=== PATIENT | female | born 1960 | race Caucasian/White ===

== ENCOUNTER 2017-12-02 00:03 | Emergency (ER) | END 2017-12-02 07:39 | disposition short-term general hospital (02) ==

== ENCOUNTER 2018-10-27 04:59 | Emergency (ER) | payer OTHER ==
[~2018-10-27] VITALS: Ht 175.3 cm; Wt 68.2 kg
[2018-10-27 05:09] VITALS: Ht 175.3 cm; Wt 68.2 kg
[2018-10-27] MEDS ORDERED: PIPER-TAZO 3.375 GM IV (PMX) 100 ML IVPB STA (05:31)
[2018-10-27] MEDS ORDERED: SODIUM CHLORIDE 0.9% 1L BAG IV* STA (05:31)
[2018-10-27] MEDS ORDERED: ACETAMINOPHEN 325 MG TAB PO STA (05:31)
[2018-10-27] MEDS ORDERED: VANCOMYCIN 1 GM (PMX) 250 ML IVPB STA (05:31)
[2018-10-27] MEDS ORDERED: ONDANSETRON 4 MG INJ IV STA (06:07)
[2018-10-27] MEDS ORDERED: morphine 4 MG/ML VIAL IV STA (06:07)
[2018-10-27] MEDS ORDERED: SULF1TAB31 PO (07:57)
[2018-10-27] MEDS ORDERED: CEPH-443 PO (07:57)
[2018-10-27 08:20] VITALS: BP 94/52; PULSE 94; RESP 18
--- NOTE | 2018-10-27 13:26 | ERD ---
ER Documentation Chief Complaint Chief Complaint bilateral leg swelling/open sores getting worse. HPI Patient is a 58-year-old female with non-Hodgkin's lymphoma presents with wounds to the bilateral lower extremities. Her symptoms started on her heels and feet. It is painful. The pain and redness is now up her legs. She is a large hole to the right lateral leg which started 4 months ago but is worsening and draining. She has fevers. She has had no recent antibiotics. Upon review of old medical records the patient one previous visit to the ER in November 2017. Her doctor is a [facility]. ROS All systems reviewed and are negative except as per history of present illness. Medications Home Meds Active Scripts Cephalexin* (Keflex*) 500 Mg Capsule, 500 MG PO QID for 7 Days, CAP Prov:MAGGY MONTEZ MD 10/27/18 Sulfamethoxazole/Trimethoprim* (Bactrim Ds* Tablet) 1 Each Tablet, 1 TAB PO BID, #14 TAB Prov:MAGGY MONTEZ MD 10/27/18 Allergies Allergies: Coded Allergies: No Known Allergy (Unverified , 12/02/17) PMhx/Soc Hx Cardiac Disorders: Yes ( ) Hx Miscellaneous Medical Probl: Yes (hodgkins lymphoma, hypothyroid, bilat leg edema) Hx Alcohol Use: No Hx Substance Use: Yes (heroine user) Hx Tobacco Use: Yes (i cigar per day) Smoking Status: Current every day smoker FmHx Family History: No diabetes Physical Exam Vitals Vital Signs Date Temp Pulse Resp B/P (MAP) Pulse Ox O2 O2 Flow FiO2 Time Delivery Rate 10/27/18 98.5 94 18 94/52 (66) 95 Room Air 08:20 10/27/18 98.8 92 18 101/57 95 Room Air 06:30 (72) 10/27/18 Nasal 05:42 Cannula 10/27/18 101.0 100 20 116/73 97 Room Air 05:42 (87) 10/27/18 101.0 109 20 123/67 97 05:09 (85) Physical Exam Const: Moderate distress Head: Atraumatic Eyes: Normal Conjunctiva ENT: Normal External Ears, Nose and Mouth. Neck: Full range of motion. No meningismus. Resp: Clear to auscultation bilaterally Cardio: Regular rate and rhythm, no murmurs Abd: Soft, non tender, non distended. Normal bowel sounds Skin: Pale skin, ulcers to the base of the heels bilaterally, large hole approximately 3 x 4 cm with drainage to the right lateral calf Back: No midline or flank tenderness Ext: Edema of the bilateral lower extremities Neur: Awake and alert Psych: Normal Mood and Affect Result Diagram: 10/27/18 0549 10/27/18 0549 Results 24 hrs Laboratory Tests Test 10/27/18 05:49 10/27/18 05:56 10/27/18 07:57 White Blood Count 16.5 10^3/ul Red Blood Count 3.17 10^6/ul Hemoglobin 8.2 g/dl Hematocrit 27.0 % Mean Corpuscular Volume 85.2 fl Mean Corpuscular Hemoglobin 25.9 pg Mean Corpuscular Hemoglobin Concent 30.4 g/dl Red Cell Distribution Width 19.0 % Platelet Count 430 10^3/UL Mean Platelet Volume 8.9 fl Immature Granulocytes % 0.700 % Neutrophils % 78.1 % Lymphocytes % 15.1 % Monocytes % 5.2 % Eosinophils % 0.5 % Basophils % 0.4 % Nucleated Red Blood Cells % 0.0 /100WBC Immature Granulocytes # 0.110 10^3/ul Neutrophils # 12.9 10^3/ul Lymphocytes # 2.5 10^3/ul Monocytes # 0.9 10^3/ul Eosinophils # 0.1 10^3/ul Basophils # 0.1 10^3/ul Nucleated Red Blood Cells # 0.0 10^3/ul Prothrombin Time 13.7 Sec Prothrombin Time Ratio 1.1 INR International Normalized Ratio 1.04 Activated Partial Thromboplast Time 35.7 Sec Sodium Level 140 mmol/L Potassium Level 3.2 mmol/L Chloride Level 105 mmol/L Carbon Dioxide Level 27 mmol/L Anion Gap 8 Blood Urea Nitrogen 12 mg/dl Creatinine 0.77 mg/dl Est Glomerular Filtrat Rate mL/min > 60 mL/min Glucose Level 105 mg/dl Calcium Level 8.6 mg/dl Total Bilirubin 0.3 mg/dl Direct Bilirubin 0.00 mg/dl Indirect Bilirubin 0.3 mg/dl Aspartate Amino Transf (AST/SGOT) 15 IU/L Alanine Aminotransferase (ALT/SGPT) < 6 IU/L Alkaline Phosphatase 176 IU/L Troponin I < 0.012 ng/ml Total Protein 7.8 g/dl Albumin 3.0 g/dl Globulin 4.80 g/dl Albumin/Globulin Ratio 0.62 POC Venous Lactate 1.3 mmol/L Lactic Acid Level 0.7 mmol/L Current Medications Medications Dose Sig/Marina Start Time Status Last (Trade) Ordered Route PRN Stop Time Admin Dose Reason Admin Sodium 2,050 ml BOLUS OVER 2 10/27/18 DC 10/27/18 Chloride HOURS STAT 05:31 10/27/18 06:04 (NS) IV* 05:32 650 mg ONCE STAT 10/27/18 DC 10/27/18 Acetaminophen PO 05:31 10/27/18 06:04 (Tylenol 05:32 Tab) Vancomycin 250 ml @ ONCE STAT 10/27/18 DC 10/27/18 HCl 125 mls/hr IVPB 05:31 10/27/18 06:30 07:30 Piperacillin 100 ml @ ONCE STAT 10/27/18 DC 10/27/18 Sod/ 200 mls/hr IVPB 05:31 10/27/18 06:04 Tazobactam 06:00 Sod Morphine 4 mg ONCE STAT 10/27/18 DC 10/27/18 Sulfate IV 06:07 10/27/18 06:31 (morphine) 06:08 Ondansetron 4 mg ONCE STAT 10/27/18 DC 10/27/18 HCl (Zofran IV 06:07 10/27/18 06:30 Inj) 06:08 Procedures/MDM Sepsis Documentation: Patient's infectious symptoms have not stabilized and the patient is at risk of rapid decompensation. The patient will be admitted for careful hydration, antibiotic therapy, and infectious source control. SEVERE SEPSIS CRITERIA: Infectious source: Cellulitis End organ damage indicated by: No endorgan damage SEPSIS MANAGEMENT Time of recognition of sepsis: 5:49 AM. Time of recognition of severe sepsis: No severe sepsis at this time. Time of recognition of septic shock: No septic shock at this time. 3 HOUR BUNDLE Blood cultures x 2 before broad-spectrum antibiotics: Yes 30 ml/kg NS bolus completed Initial lactate 1.3 Repeat lactate 0.7 SEPTIC SHOCK ASSESSMENT: No lactic acid > 4.0 No persistent hypotension (SBP < 90 or 40 mmHg drop, MAP < 65) despite 30 mL/kg IV fluid bolus VOLUME REASSESSMENT FOR SEPTIC SHOCK: No septic shock at this time PERSISTENT HYPOTENSION TREATMENT: Comfort care no Central line not Required Vasopressor started not required I considered further perfusion assessment with CVP measurement, SCVO2, bedside ultrasound volume assessment, passive leg raise, trial of further fluid bolus. And proceeded with 30 ml/kg fluid bolus of NSS, broad spectrum antibiotics, and admission. However the patient does not want to be transferred to [facility] because she says "they do not treat drug users well there". I told her that we could admit her here but that she would be stuck with a huge bill for the admission as [facility] will not pay. I spoke with Dr. Bethea from [facility] who did say that they would not authorize payment if the patient was admitted to [facility]. The patient still does not want to be transferred to [facility] so she is going to leave AGAINST MEDICAL ADVICE. I will give her a prescription for Bactrim and Keflex. She should follow-up with her primary doctor within 24 to 48 hours for reevaluation and could return for worsening symptoms. CRITICAL CARE Critical care time 35 minutes Emergent fluid management while maintaining close respiratory support. Provision of immediate and broad-spectrum antibiotic therapy. Simultaneous asse ssment for possible sources in order to direct targeted therapy. Consideration for invasive and chemical support to prevent cardiopulmonary collapse. Critical care time is independent of procedures performed. Departure Diagnosis: Primary Impression: Sepsis Sepsis type: sepsis due to unspecified organism Qualified Codes: A41.9 - Sepsis, unspecified organism Additional Impression: Cellulitis Site of cellulitis: extremity Site of cellulitis of extremity: lower extremity Laterality: unspecified laterality Qualified Codes: L03.119 - Cellulitis of unspecified part of limb Condition: Fair Patient Instructions: Cellulitis Referrals: Your doctor at [facility] Additional Instructions: Call your primary care doctor TOMORROW for an appointment during the next 1-2 days.See the doctor sooner or return here if your condition worsens before your appointment time. MAGGY MONTEZ MD Oct 27, 2018 13:26
== END 2018-10-27 08:45 | disposition left against medical advice (07) ==
LOC: E/R 04:59
DX: A41.9 Sepsis, unspecified organism (principal); F17.210 Nicotine dependence, cigarettes, uncomplicated; E03.9 Hypothyroidism, unspecified; L03.115 Cellulitis of right lower limb; L03.116 Cellulitis of left lower limb; Z85.71 Personal history of Hodgkin lymphoma
CPT/HCPCS: 36415; 71045; 80053; 83605; 84484; 85025; 85610; 85730; 87040; 93005; 96374; 96375; J2270; J2405; J2543; J3370; J7030; Z7502; Z7610

== ENCOUNTER 2018-11-04 05:36 | Inpatient (IN) | payer OTHER ==
[~2018-11-04] VITALS: Ht 175.3 cm; Wt 78.4 kg
[~2018-11-04 05:36] MED LIST: CEPH-443 PO; SULF1TAB31 PO
[2018-11-04] MEDS ORDERED: VANCOMYCIN 1 GM (PMX) 250 ML IVPB STA (06:32)
[2018-11-04] MEDS ORDERED: PIPER-TAZO 3.375 GM IV (PMX) 100 ML IVPB STA (06:32)
[2018-11-04] MEDS ORDERED: ONDANSETRON 4 MG INJ IV PRN ×2 (07:00→09:30)
[2018-11-04] MEDS ORDERED: ACETAMINOPHEN 325 MG TAB PO PRN ×2 (07:00→09:30)
[2018-11-04] MEDS ORDERED: LEVO200T45 PO (08:08)
--- NOTE | 2018-11-04 08:20 | ERD ---
ER Documentation Chief Complaint Chief Complaint gabino leg swelling x 2 weeks HPI Patient is a 58-year-old female with history of heroin abuse who presents with bilateral lower extremity wounds. She said that she got rid of [facility] and wants to be admitted now. She denies fevers recently. I saw her on October 27 for fever and leg wounds which were draining and wanted to admit her to the hospital for cellulitis at that time. However [facility] but she was adamant that she did not want to go to [facility]. She left AGAINST MEDICAL ADVICE and I discharge her with Bactrim and Keflex. Unfortunately she did not fill these prescriptions. Upon review of old medical records this is the patient's third visit to the ER since 2018. She does not currently have a primary doctor but does have her new insurance. ROS All systems reviewed and are negative except as per history of present illness. Medications Home Meds Reported Medications Levothyroxine Sodium* (Levoxyl*) 200 Mcg Tablet, 200 MCG PO BEFORE BREAKFAST, #30 TAB 11/04/18 Discontinued Scripts Cephalexin* (Keflex*) 500 Mg Capsule, 500 MG PO QID for 7 Days, CAP Prov:MAGGY MONTEZ MD 10/27/18 Sulfamethoxazole/Trimethoprim* (Bactrim Ds* Tablet) 1 Each Tablet, 1 TAB PO BID, #14 TAB Prov:MAGGY MONTEZ MD 10/27/18 Allergies Allergies: Coded Allergies: No Known Allergy (Unverified , 11/04/18) PMhx/Soc Hx Cardiac Disorders: Yes ( ) Hx Miscellaneous Medical Probl: Yes (hodgkins lymphoma, hypothyroid, bilat leg edema) Hx Alcohol Use: No Hx Substance Use: Yes (heroine user) Hx Tobacco Use: Yes (i cigar per day) FmHx Family History: No diabetes Physical Exam Vitals Vital Signs Date Temp Pulse Resp B/P (MAP) Pulse Ox O2 O2 Flow FiO2 Time Delivery Rate 11/04/18 98.7 107 20 120/75 100 05:39 (90) Physical Exam Const: No acute distress Head: Atraumatic Eyes: Normal Conjunctiva ENT: Normal External Ears, Nose and Mouth. Neck: Full range of motion. No meningismus. Resp: Clear to auscultation bilaterally Cardio: Regular rate and rhythm, no murmurs Abd: Soft, non tender, non distended. Normal bowel sounds Skin: Necrotic ulcers to the bilateral lower extremities with surrounding erythema consistent with bilateral lower extremity cellulitis, large ulcer to the right lateral calf Back: No midline or flank tenderness Ext: No cyanosis, or edema Neur: Awake and alert Psych: Normal Mood and Affect Results 24 hrs Laboratory Tests Test 11/04/18 07:53 11/04/18 07:55 POC Venous Lactate 0.9 mmol/L White Blood Count Pending Red Blood Count Pending Hemoglobin Pending Hematocrit Pending Mean Corpuscular Volume Pending Mean Corpuscular Hemoglobin Pending Mean Corpuscular Hemoglobin Concent Pending Red Cell Distribution Width Pending Platelet Count Pending Mean Platelet Volume Pending Urine Color YELLOW Urine Clarity SLIGHTLY CLOUDY Urine pH 5.0 Urine Specific [place] 1.021 Urine Ketones NEGATIVE mg/dL Urine Nitrite NEGATIVE mg/dL Urine Bilirubin NEGATIVE mg/dL Urine Urobilinogen 2+ mg/dL Urine Leukocyte Esterase 2+ Cheng/ul Urine Microscopic RBC 5 /HPF Urine Microscopic WBC 88 /HPF Urine Squamous Epithelial Cells FEW /HPF Urine Bacteria FEW /HPF Urine Mucus MODERATE /HPF Urine Hemoglobin NEGATIVE mg/dL Urine Glucose NEGATIVE mg/dL Urine Total Protein NEGATIVE mg/dl Current Medications Medications Dose Sig/Marina Start Time Status Last (Trade) Ordered Route PRN Stop Time Admin Dose Reason Admin Vancomycin 250 ml @ ONCE STAT 11/04/18 HCl 125 mls/hr IVPB 06:32 11/04/18 08:31 Piperacillin 100 ml @ ONCE STAT 11/04/18 DC 11/04/18 Sod/ 200 mls/hr IVPB 06:32 07:47 Tazobactam 11/04/18 07:01 Sod Ondansetron 4 mg BRIDGE ORDER 11/04/18 HCl (Zofran PRN IV 07:00 Inj) NAUSEA/VOMITI 11/05/18 06:59 NG 650 mg ER BRIDGE 11/04/18 Acetaminophen PRN PO 07:00 (Tylenol .MILD PAIN 11/05/18 06:59 Tab) 1-3 OR TEMP Procedures/MDM Patient is a 58-year-old female who presents with bilateral lower extremity cellulitis. I doubt sepsis at this time. The patient was given vancomycin and Zosyn empirically and will need admission to the hospital. She will likely need wound care consultation while admitted. She has [facility] insurance now and I spoke with Dr. Fry for admission to a medical surgical bed. Departure Diagnosis: Primary Impression: Cystitis Additional Impression: Cellulitis Site of cellulitis: extremity Site of cellulitis of extremity: lower extremity Laterality: unspecified laterality Qualified Codes: L03.119 - Cellulitis of unspecified part of limb Condition: MAGGY Varghese MD Nov 04, 2018 08:20
[2018-11-04] MEDS ORDERED: VANCOMYCIN IV PER PHARMACY XX SCH (09:30)
[2018-11-04] MEDS ORDERED: VANCOMYCIN 500 MG (PMX) 100 ML IVPB SCH (11:00)
--- NOTE | 2018-11-04 14:09 | QN ---
Documentation Comment PT SEEN AND EXAMINED STAR MENDEZ MD Nov 04, 2018 14:09
[2018-11-04] MEDS ORDERED: DICYCLOMINE 10 MG CAP PO PRN (14:30)
[2018-11-04] MEDS ORDERED: KETOROLAC 30 MG INJ IV PRN (14:30)
[2018-11-04] MEDS: NICOTINE (21 MG/24 HR) PATCH TRANSDERM SCH (14:57)
[2018-11-04] MEDS: FAMOTIDINE 20 MG INJ IV SCH (14:57)
[2018-11-04] MEDS: SOD CHLORIDE 0.9% 1,000 ML IV SCH (14:58)
[2018-11-04 15:27] VITALS: Ht 175.3 cm; Wt 78.4 kg
[2018-11-04 15:35] VITALS: BP 118/71; PULSE 85; RESP 18
[2018-11-04] MEDS: DAKINS 0.0125%(1/40) 473 ML SOLUTION TP SCH (16:00)
[2018-11-04] MEDS: COLLAGENASE 5 GM (UD JAR) TOP SCH (16:00)
--- NOTE | 2018-11-04 16:02 | HP ---
DATE OF ADMISSION: 11/04/2018 REASON FOR ADMISSION: Bilateral lower extremity wounds. HISTORY OF PRESENT ILLNESS: This is a 58-year-old female with a past medical history of non-Hodgkin lymphoma, currently in remission for the last 5 years, followed at [facility] before, a history of heroin use, smoking, presented to the emergency department on 11/03/2018 secondary to worsening bi lateral lower extremity wounds for past few weeks. According to the patient, the patient has been black ving bilateral leg swelling for approximately a month. She lives in an . According to the patient , she was following in [facility] before and she lost her insurance. She was seen in the ER on 10/27/2018 for fever and bilateral lower extremity wounds that were draining, and wanted to admit to the hospital; however, she did not want to go to the [facility]. At that time she was at [facility] and left against medical advice with Bactrim and Keflex. She did not fill the prescriptions. However, the b ilateral lower extremity wounds were getting worse and came to the emergency department for further e valuation. The patient had also noticed on the right lower extremity, the wound had actually a hole and was draining. According to her, the stuff she drained out was really bad a few days ago. Denied any fevers and chills. On arrival to ED, vital signs show temperature 98.7, pulse 107, respirations 20, blood pressure 120/75. Labs showed white count of 7.2, hemoglobin 7.9, platelet count of 450, g lucose of 98, BUN of 12, creatinine 0.81, alkaline phosphatase 143. UA showed 88 wbc's. The patient was started on vancomycin and Zosyn and was admitted for further management. PAST MEDICAL HISTORY: 1. History of non-Hodgkin lymphoma. 2. Heroin use. 3. Hypothyroidism. ALLERGIES: NONE. PAST SURGICAL HISTORY: None. MEDICATIONS TAKING AT HOME: Levothyroxine. SOCIAL HISTORY: The patient is an everyday heroin user, uses one time of heroin every day for the years. Also uses a half a pack a day of smoking. Smoked cigarettes for many years. Denies an y alcohol use. Currently lives with a friend in . REVIEW OF SYSTEMS: The patient denied any abdominal pain, nausea, vomiting, diarrhea. Denies any ch est pain, any shortness of breath. Denies any headache, any blurry vision. Denies shortness of michael th. The patient has bilateral lower extremity edema with wounds. The patient also had wound on the left upper arm. PHYSICAL EXAMINATION: VITAL SIGNS: Currently, temperature 98.7, pulse 107, respirations 20, blood pressure 120/75. GENERAL: The patient is awake, alert, oriented, somewhat disheveled. HEENT: Pupils equal, round, reactive to light. NECK: Supple, no JVD. HEART: Regular rhythm. LUNGS: Clear to auscultate bilaterally. ABDOMEN: Soft, nontender, nondistended. Positive normoactive bowel sounds. EXTREMITIES: The patient has bilateral lower extremities with 2 to 3+ edema. The patient has rednes s, erythema present on the shins. The patient has necrotic ulcer present on the right lateral calf a round 4 to 5 cm, which is actively draining pus. The patient also has 2 bumps noted on the left hand . DIAGNOSTIC DATA: White count of 7.2, hemoglobin 7.9, platelet count 450, BUN of 12, creatinine 0.81. UA is positive. Chest x-ray is negative. ASSESSMENT AND PLAN: This is a 58-year-old female with: 1. Bilateral lower extremity wounds with cellulitis with large necrotic wound on the right romero, rig ht lateral calf, questionable likely secondary to osteomyelitis. 2. Two bumps present on the left hand, could be secondary to methicillin-resistant Staphylococcus au reus abscesses. 3. Heroin user. 4. History of smoking. 5. Urinary tract infection. 6. Anemia, likely secondary to anemia of chronic disease. 7. History of non-Hodgkin lymphoma. PLAN: At this period of time, the patient is admitted to med/surg. The patient will be on broad spe ctrum antibiotics, vancomycin and cefepime. We will call wound care. We will also call podiatry con sult. We will also send for wound cultures. The patient will also get x-ray of the leg and probably an MRI. Will also call for ID consultation. [facility] Dictated By: STAR LEON/ALBINA Conf#: [id number] DID#: [id number] CC: BRUCE LYLES MD;*EndCC*
[2018-11-04 20:10] VITALS: BP 122/73; PULSE 82; RESP 18
[2018-11-04] MEDS: CEFEPIME 1GM/50 ML (PMX) 50 ML IVPB SCH (21:09)
[2018-11-04] MEDS: LORAZEPAM 2 MG INJ IV PRN (21:16)
[2018-11-04] MEDS: VANCOMYCIN 1 GM 250 ML IVPB SCH (23:20)
[2018-11-05 02:12] VITALS: BP 109/82; PULSE 87; RESP 18
[2018-11-05] MEDS: LORAZEPAM 2 MG INJ IV PRN (02:56)
[2018-11-05] MEDS ORDERED: LORAZEPAM 2 MG INJ IV PRN (04:30)
[2018-11-05] MEDS ORDERED: morphine 2 MG INJ IV ONE (04:30)
[2018-11-05 08:12] VITALS: BP 105/67; PULSE 87; RESP 18
--- NOTE | 2018-11-05 08:24 | CONS ---
DATE OF ADMISSION: 11/04/2018 DATE OF CONSULTATION: 11/04/2018 TYPE OF CONSULTATION: Cardiology REFERRING PHYSICIAN: Agatha Mendez MD REASON FOR CONSULTATION: Bilateral lower extremity ulcerations. HISTORY OF PRESENT ILLNESS: This is a 58-year-old female who has had chronic ulceration to the right lower extremity, has bilateral lower extremity edema and patient apparently had issues with access t o care. She was treated at [place], but left against medical advice and did obtain antibiotic prescri ptions. Ulcerations were seen and admitted through the Emergency Room here, patient initiated on [facility] antibiotic with vancomycin and Zosyn. PAST MEDICAL HISTORY: History of non-Hodgkin's lymphoma, history of heroin use, hypothyroidism. ALLERGIES: None. PAST SURGICAL HISTORY: None. MEDICATIONS: Levothyroxine. SOCIAL HISTORY: Heroin use daily for the last 20 years, half pack per day for tobacco, patient rip marvin lives in an [place]. REVIEW OF SYSTEMS: Bilateral lower extremity swelling. OBJECTIVE: VITAL SIGNS: Temperature is 97.6, pulse is 85, respiratory rate 18, blood pressure is 118/71, pulse ox is 100 on room air. EXTREMITIES: Patient is alert, oriented, disheveled, bilateral lower extremity lymphedema, 2+ poplit eal pulse bilaterally, 2+ PT pulse, 1+ DP pulse on the right, left DP nonpalpable. The patient with ulceration of the right lateral calf measuring 3 x 4 x 2 cm deep. There is exposed muscle without ne crosis. There is moderate serous drainage. No signs of tunneling or undermining, localized erythema . The patient with 2+ pitting edema bilaterally, left anterior lower romero with the superficial ulcer ation with presence of biofilm measuring approximately 3 x 0.5 cm. No signs of pressure ulceration. LABORATORIES: WBC 7.2, hemoglobin 7.9, hematocrit 26.6, platelets 450. Sodium 141, potassium 3.7, c hloride 107, CO2 29, BUN 12, creatinine 0.81, albumin is 3.1. INR is 1.07. ASSESSMENT: Nares culture is pending. Chest x-ray: Improved lung volumes with decreased basilar at electasis. MRI pending. PLAN: Patient is currently on empiric antibiotics including vancomycin and cefepime. Can obtain wou nd cultures, initiate topical antiseptic precautions. We will follow up on the MRI when they become available. Recommend a venous ultrasound and compression with a sequential compression device. Rhiannon ent with a deep wound may benefit from negative pressure wound therapy while in-house. Therapy at [facility] may be difficult and may benefit from care home placement. Dictated By: TINO LEON/ALBINA Conf#: [id number] DID#: [id number] CC: AGATHA MENDEZ; BRUCE LYLES MD;*End*
[2018-11-05] MEDS ORDERED: COLLAGENASE 5 GM (UD JAR) TOP SCH (09:00)
[2018-11-05] MEDS: CEFEPIME 1GM/50 ML (PMX) 50 ML IVPB SCH (09:35)
[2018-11-05] MEDS: FAMOTIDINE 20 MG INJ IV SCH (09:35)
[2018-11-05] MEDS: NICOTINE (21 MG/24 HR) PATCH TRANSDERM SCH (09:36)
[2018-11-05] MEDS: COLLAGENASE 5 GM (UD JAR) TOP SCH (10:56)
[2018-11-05] MEDS: SOD CHLORIDE 0.9% 1,000 ML IV SCH (10:56)
[2018-11-05] MEDS: DAKINS 0.0125%(1/40) 473 ML SOLUTION TP SCH (10:56)
[2018-11-05] MEDS: VANCOMYCIN 1 GM 250 ML IVPB SCH (11:19)
--- NOTE | 2018-11-05 15:47 | CONS ---
DATE OF ADMISSION: 11/04/2018 DATE OF CONSULTATION: 11/05/2018 TYPE OF CONSULTATION: Infectious disease. REASON FOR CONSULTATION: Antibiotic management. HISTORY OF PRESENT ILLNESS: Celia Colon is a 58-year-old female who was admitted on 11/04/2018 with bilateral swelling of her feet. The patient has a history of heroin abuse, who presents with bilater al lower extremity wounds. She had [employer] insurance and wants to be admitted now here. She has feve r and leg wounds on 10/27/2018 which were draining and we wanted to admit her at that point for cellu litis. She had [facility] and need to be transferred, but she was adamant. She does not want to go to [place]. She left against medical advice. The emergency room doctor discharged her on Bact rim and Keflex. PAST MEDICAL HISTORY: Includes Hodgkin's lymphoma, hypothyroidism, bilateral leg edema. FAMILY HISTORY: Noncontributory. SOCIAL HISTORY: She smokes 1 cigar a day. She is a heroin user. ALLERGIES: NONE TO PENICILLIN, SULFA OR FOODS. MEDICATIONS: Per chart. REVIEW OF SYSTEMS: Noncontributory. PHYSICAL EXAMINATION: GENERAL: The patient is alert, responsive, in no acute distress. VITAL SIGNS: Stable. She is afebrile. SKIN: Without generalized rash. HEENT: Within normal limits. NECK: Supple. LYMPH NODES: None palpable. CHEST: Decreased breath sounds at the bases. HEART: Without murmur or gallop. ABDOMEN: Soft, nontender without organosplenomegaly or masses. EXTREMITIES: Without cyanosis, clubbing or edema. She has necrotic ulcers to bilateral lower extrem ities with surrounding erythema consistent with bilateral lower extremity cellulitis. She has a larg e ulcer to the right lateral calf. RECTAL AND GENITAL: Deferred. NEUROLOGIC: No focal neurological abnormality. HOSPITAL COURSE: Urinalysis shows 2+ leukocytes, 88 white cells per high-power field. She was place d on vancomycin and Zosyn. She has bilateral lower extremity cellulitis. She is on vancomycin and Z osyn. She was admitted for wound care consultation as well and will be followed up by Dr. Lyles and Dr. Vidales. She was also seen by Dr. Amezquita. She is currently on empiric antibiotics on vancomycin , now cefepime. White count 7.2. We obtained wound cultures and initiated topical antiseptic precau tions. An MRI was scheduled. We will recommend venous ultrasound and with sequential compression de vice. The patient with deep wound may benefit from negative pressure wound therapy while in-house. Therapy at home may be difficult and may benefit from fdc placement. We will continue th e patient on vancomycin and cefepime. I will dictate my findings to the hospitalist. Dictated By: QAMAR ORTIZ MD, JD/ALBINA Conf#: [id number] DID#: [id number] CC: BRUCE LYLES MD; TINO AMEZQUITA DPM;*EndCC*
--- NOTE | 2018-11-05 18:53 | DS ---
DATE OF ADMISSION: 11/04/2018 DATE OF DISCHARGE: 11/05/2018 HISTORY OF PRESENTING ILLNESS AND HOSPITAL COURSE: This is a 58-year-old female with past medical hi story of non-Hodgkin lymphoma, followed by [facility], history of heroin abuse, smoking, present ed to emergency department secondary to worsening bilateral lower extremity wounds for past few weeks . The patient had been having bilateral swelling for past 1 month. The patient was following at [facility] before patient came to the ER on 10/27/2018 for fever and bilateral lower extremity wounds that w ere draining. She did not want to go to [place] at that time. She left against medical advice. She was given a prescription of Bactrim and Keflex; however, did not take any prescriptions, came to be w orsening bilateral lower extremity edema, redness, had a hole in the right calf that was draining. O n admission, vital signs were stable. White count was 7.2, hemoglobin 7.9, platelet count 450, BUN o f 12, creatinine 0.81. The patient was started on broad spectrum IV antibiotics with vancomycin and cefepime. The patient was also seen by Dr. Lopez and venous ultrasound was done which is negative for DVT. The patient's cultures were sent. Blood cultures were negative. Gram stain came out to be gram-negative tarun. ID was also consulted. MRI was done that showed a very extensive bilateral soft tissue swelling, query cellulitis; large skin ulceration, lateral aspect of the right mid calf on th e right within the anteromedial soft tissue. There is suspicion of phlegmon abscess cm similar region seen anterior on the left . However, patient was explained everything but the patient w anted to leave AMA as she had a cat take care of. I explained to the patient that patient needs to b e in the hospital for IV antibiotics and surgical recommendation for possible drainage; however, the patient said that there is nobody to take care of her cat and left against medical advice. Dictated By: STAR LEON/ALBINA Conf#: [id number] DID#: [id number]
== END 2018-11-05 14:01 | disposition left against medical advice (07) | DRG 603 ==
LOC: E/R 05:36 → PP2 06:53
PROVIDERS: ADMIT Internal Medicine Nephrology; ATTEND Internal Medicine Nephrology
DX: L03.116 Cellulitis of left lower limb (principal); N39.0 Urinary tract infection, site not specified; L03.115 Cellulitis of right lower limb; E03.9 Hypothyroidism, unspecified; F19.10 Other psychoactive substance abuse, uncomplicated; D64.9 Anemia, unspecified; Z85.72 Personal history of non-Hodgkin lymphomas; Z87.891 Personal history of nicotine dependence
CPT/HCPCS: 71045; 73721; 80053; 81001; 82607; 82746; 83540; 83605; 84484; 85025; 85045; 85610; 85730; 87070; 87081; 87086; 93005; 93970; J0692; J1885; J2060; J2270; J2543; J3370; J7030

== ENCOUNTER 2018-11-09 03:43 | Inpatient (IN) | payer OTHER ==
[~2018-11-09] VITALS: Ht 172.7 cm; Wt 77.7 kg
[~2018-11-09 03:43] MED LIST changes: -CEPH-443 PO; +LEVO200T45 PO; -SULF1TAB31 PO
[2018-11-09] MEDS ORDERED: SODIUM CHLORIDE 0.9% 1L BAG IV* STA (06:13)
[2018-11-09] MEDS ORDERED: PIPER-TAZO 3.375 GM IV (PMX) 100 ML IVPB STA (06:13)
[2018-11-09] MEDS ORDERED: CLINDAMYCIN 900 MG/D5W (PMX) 50 ML IVPB STA (06:13)
[2018-11-09] MEDS ORDERED: VANCOMYCIN 1 GM (PMX) 250 ML IVPB STA (06:13)
--- NOTE | 2018-11-09 06:59 | ERD ---
ER Documentation Chief Complaint Chief Complaint swelling bilateral legs with multiple wounds HPI This is a 58-year-old female that has a past medical history of non-Hodgkin's lymphoma and heroin abuse. The patient indicates her last use of opium was 24 hours ago. The patient had recently been evaluated at [facility] on October 27, 2018 for fever and bilateral lower extremity draining ulcers treated for cellulitis. At that time she left AGAINST MEDICAL ADVICE and had been given a prescription of Bactrim and Keflex which she stated she did not fill. The patient had return for worsening of her symptoms to [facility] and was admitted with a significant work-up for treatment with broad-spectrum antibiotics and also seen by the funeral director/embalmer/owner Dr. Lopez. The patient had venous duplex ultrasounds performed at [facility] 4 days ago that indicated no evidence of a deep vein thrombosis. The patient did have an MRI that showed extensive bilateral soft tissue swelling, suspected cellulitis and a large skin ulceration on the right lower extremity that was suspicious of a phlegmon abscess. The patient had also left AGAINST MEDICAL ADVICE at that time with negative blood cultures and a Gram stain that was positive for gram- negative rods. She returns to the emergency department today stating that she has had very foul-smelling purulent drainage over the right lower extremity skin ulceration. She has had a tactile fever with shaking and chills. She states the pain is 10 out of 10 in intensity over the ulcer site. ROS All systems reviewed and are negative except as per history of present illness. Medications Home Meds Reported Medications Levothyroxine Sodium* (Levoxyl*) 200 Mcg Tablet, 200 MCG PO BEFORE BREAKFAST, #30 TAB 11/04/18 Discontinued Scripts Cephalexin* (Keflex*) 500 Mg Capsule, 500 MG PO QID for 7 Days, CAP Prov:MAGGY MONTEZ MD 10/27/18 Sulfamethoxazole/Trimethoprim* (Bactrim Ds* Tablet) 1 Each Tablet, 1 TAB PO BID, #14 TAB Prov:MAGGY MONTEZ MD 10/27/18 Allergies Allergies: Coded Allergies: No Known Allergy (Unverified , 11/04/18) PMhx/Soc History of Surgery: No Anesthesia Reaction: No Hx Neurological Disorder: No Hx Respiratory Disorders: No Hx Cardiac Disorders: No Hx Psychiatric Problems: No Hx Miscellaneous Medical Probl: Yes (Hodgkins Lymphoma 10 years ago, smoker 1/2 pack, heroin user for 20 years) Hx Alcohol Use: No Hx Substance Use: Yes (OPIUM) Hx Tobacco Use: Yes Smoking Status: Current every day smoker Physical Exam Vitals Vital Signs Date Temp Pulse Resp B/P (MAP) Pulse Ox O2 O2 Flow FiO2 Time Delivery Rate 11/09/18 98.0 91 22 112/79 100 Room Air 05:10 (90) 11/09/18 98.4 108 20 133/69 98 03:54 (90) Physical Exam Constitutional:Well-developed. Well-nourished. HEENT:Normocephalic. Atraumatic.Pupils were equal round reactive to light. Moist mucous membranes.No tonsillar exudates. Neck: No nuchal rigidity. No lymphadenopathy. No posterior cervical spine tenderness or step-offs. Respiratory: Not using accessory muscles of respiration.Lungs were clear to a uscultation bilaterally. No rhonchi. No rales. No wheezing. Cardiovascular: Regular rate regular rhythm.No murmurs. No rubs were appreciated.S1, S2 normal. Distal pulses are palpable 1+ bilaterally. GI: Abdomen was soft. Nontender. Non Distended. No pulsatile abdominal masses or bruits. No rebound. No guarding. Bowel sounds were present and normal. Muscle skeletal: Significant soft tissue swelling of the bilateral lower extremities. Skin: 4 cm x 5 cm stage III deep ulcer of the lateral right mid calf with pain not out of proportion to physical exam and no subcutaneous emphysema. Foul- smelling purulent drainage in the ulcer site. Surrounding erythremia warmth tenderness. NEURO: Patient was alert, awake, orientated x3.No facial droop. Gait observed and normal with no ataxia.Speech had regular rate and rhythm. No focal neurological deficits. Results 24 hrs Laboratory Tests Test 11/09/18 06:39 11/09/18 06:43 POC Venous Lactate 1.0 mmol/L White Blood Count Pending Red Blood Count Pending Hemoglobin Pending Hematocrit Pending Mean Corpuscular Volume Pending Mean Corpuscular Hemoglobin Pending Mean Corpuscular Hemoglobin Concent Pending Red Cell Distribution Width Pending Platelet Count Pending Mean Platelet Volume Pending Current Medications Medications Dose Sig/Marina Start Time Status Last (Trade) Ordered Route PRN Stop Time Admin Dose Reason Admin Sodium 2,330 ml BOLUS OVER 2 11/09/18 DC Chloride HOURS STAT 06:13 (NS) IV* 11/09/18 06:15 Vancomycin 250 ml @ ONCE STAT 11/09/18 HCl 125 mls/hr IVPB 06:13 11/09/18 08:12 Clindamycin 50 ml @ 50 ONCE STAT 11/09/18 HCl/ mls/hr IVPB 06:13 Dextrose 11/09/18 07:12 Piperacillin 100 ml @ ONCE STAT 11/09/18 DC Sod/ 200 mls/hr IVPB 06:13 Tazobactam 11/09/18 06:42 Sod Ondansetron 4 mg BRIDGE ORDER 11/09/18 HCl (Zofran PRN IV 07:00 Inj) NAUSEA/VOMITI 11/10/18 06:59 NG 650 mg ER BRIDGE 11/09/18 Acetaminophen PRN PO 07:00 (Tylenol .MILD PAIN 11/10/18 06:59 Tab) 1-3 OR TEMP Procedures/MDM The patient presented to the emergency department with a spreading erythematous superficial infection of the skin and subcutaneous tissues. My differential diagnosis included but was not limited to necrotizing fasciitis, lymphangitis, thrombophlebitis, deep vein thrombosis, allergic reaction, neoplasm, gout or abscess. Predisposing factors of the progressive spread of erythema, warmth, pain and tenderness was considered such as lymphedema, tinea pedis, open wounds, prior trauma or surgery, pre-existing skin lesion (furuncle), retained foreign body, injection drug use or vascular or immune compromise. The patient was placed on antibiotics to cover Staphylococcus aureus, including resistant strains such as community-acquired methicillin-resistant S. aureus to treat the suspected cellulitis and underlying abscess. Repeat blood cultures were obtained. The patient was not septic. Patient received IV fluids and started on broad-spectrum antibiotics including Zosyn vancomycin and clindamycin. 12 Lead EKG tracing ordered and reviewed by myself showed: Normal sinus rhythm of 88 bpm and no arrhythmia. NE interval normal. QRS duration normal. No ST segment elevation No ST segment depression. No changes consistent with acute ischemia. I spoke with Dr. Fry who kindly agreed to admit the patient to the medical surgical floor for observation. I do not feel is necessary at this time to obtain any further radiographic imaging as I did review the previous MRI taken 4 days prior to arrival. There is no evidence of deep vein thrombosis. Departure Diagnosis: Primary Impression: Cellulitis Site of cellulitis: extremity Site of cellulitis of extremity: lower extremity Laterality: right Qualified Codes: L03.115 - Cellulitis of right lower limb Condition: Serious CHERRI DAMIAN MD Nov 09, 2018 06:59
[2018-11-09] MEDS ORDERED: ONDANSETRON 4 MG INJ IV PRN (07:00)
[2018-11-09] MEDS ORDERED: ACETAMINOPHEN 325 MG TAB PO PRN (07:00)
--- NOTE | 2018-11-09 08:52 | HP ---
Date/Time of Note Date/Time of Note DATE: 11/09/18 TIME: 08:35 Assessment/Plan VTE Prophylaxis SCD contraindicated: bilateral LE trauma Pharmacological prophylaxis: LMWH Lines/Catheters IV Catheter Type (from Nrs): Saline Lock Assessment/Plan Hospital Course 1. Bilateral cellulitis with wounds/Elephantiasis. MRI LE showed: Very extensive bilateral subcutaneous soft tissue swelling and skin thickening throughout both calves, query cellulitis. Large skin ulceration at the lateral aspect of the right mid calf. On the right within the anterolateral subcutaneous soft tissues of the mid calf there is suspicion for phlegmon/abscess measuring 5.3 x 4.4 x 1.7 cm. A smaller similar region is seen anteriorly on the left measuring approximately 2.9 x 1.8 cm. If clinically warranted contrast-enhanced MRI or CT may provide additional detail. Abnormal medullary bone marrow signal within the proximal tibial metaphysis on the right and the proximal/distal tibial metaphysis on the left, more in keeping with bone infarcts rather than osteomyelitis. No definite evidence of acute osteomyelitis at this time. 2. Active narcotic dependency with iv heroine injections and oral benzodiazepines use 3. Current smoking 4. History of lymphoma and chemotherapy 5. Normocytic hypochromic anemia 6. Malnourishment 7. Hypothyroidism 8. Non compliance with regime, high elopement risk Assessment/Plan -DVT prophylaxis start Lovenox -GI prophylaxis start Protonix -Pain control -MedSurg -BNP tomorrow -Wound care -Nicotine patch -IV anti-biotic therapy -ID consult Dr. Mckeon -Podiatry consult with Dr. Payne Wound swab culture -Recent ultrasound of lower extremity shows no sonographic evidence of the deep vein thrombosis Result Diagram: 11/09/18 0643 11/09/18 0643 Results 24hrs Laboratory Tests Test 11/09/18 06:39 11/09/18 06:43 POC Venous Lactate 1.0 White Blood Count 6.1 Red Blood Count 3.07 L Hemoglobin 8.2 L Hematocrit 26.9 L Mean Corpuscular Volume 87.6 Mean Corpuscular Hemoglobin 26.7 L Mean Corpuscular Hemoglobin Concent 30.5 L Red Cell Distribution Width 18.6 H Platelet Count 380 Mean Platelet Volume 8.9 Immature Granulocytes % 0.200 Neutrophils % 49.5 Lymphocytes % 39.2 Monocytes % 8.4 Eosinophils % 2.0 Basophils % 0.7 Nucleated Red Blood Cells % 0.0 Immature Granulocytes # 0.010 Neutrophils # 3.0 Lymphocytes # 2.4 Monocytes # 0.5 Eosinophils # 0.1 Basophils # 0.0 Nucleated Red Blood Cells # 0.0 Prothrombin Time 13.3 Prothrombin Time Ratio 1.0 INR International Normalized Ratio 1.00 Activated Partial Thromboplast Time 36.8 H Sodium Level 141 Potassium Level 3.5 Chloride Level 106 Carbon Dioxide Level 29 Anion Gap 6 Blood Urea Nitrogen 12 Creatinine 0.82 Est Glomerular Filtrat Rate mL/min > 60 Glucose Level 86 Calcium Level 9.0 Total Bilirubin 0.2 Direct Bilirubin 0.00 Indirect Bilirubin 0.2 Aspartate Amino Transf (AST/SGOT) 16 Alanine Aminotransferase (ALT/SGPT) 10 L Alkaline Phosphatase 121 Troponin I < 0.012 Total Protein 7.3 Albumin 3.1 L Globulin 4.20 H Albumin/Globulin Ratio 0.73 Amylase Level 56 Lipase 33 HPI/ROS Admit Date/Time Admit Date/Time Hx of Present Illness This is a 58-year-old female that has a past medical history of non-Hodgkin's lymphoma, had chemotherapy, hypothyroidism and current IV heroin abuse. The patient indicates her last use of opium was 24 hours ago IV. The patient had recently been admitted to [facility] on November 04, 2018 and treated with antibiotics. Previously she was evaluated at [facility] on October 27, 2018 for fever and bilateral lower extremity draining ulcers treated for cellulitis. The patient did have an MRI that showed extensive bilateral soft tissue swelling, suspected cellulitis and a large skin ulceration on the right lower extremity that was suspicious of a phlegmon abscess. The patient had also left AGAINST MEDICAL ADVICE at that time with negative blood cultures and a Gram stain that was positive for gram-negative rods. She returns to the emergency department on 11/09/2018 stating that she has had very foul-smelling purulent drainage over the right lower extremity skin ulceration. She had subjective fever with shaking and chills. She states that her pain is 10 out of 10 over the ulcer site. PAST MEDICAL HISTORY: 1. History of non-Hodgkin lymphoma. 2. Heroin use. 3. Hypothyroidism. ROS Respiratory: no complaints Gastrointestinal: no complaints Musculoskeletal: swelling, other (pain 4.10 bilateral extremities) PMH/Family/Social Past Medical History unknown Medications Current Medications Ondansetron HCl (Zofran Inj) 4 mg BRIDGE ORDER PRN IV NAUSEA/VOMITING; Start 11/09/18 at 07:00; Stop 11/10/18 at 06:59 Acetaminophen (Tylenol Tab) 650 mg ER BRIDGE PRN PO .MILD PAIN 1-3 OR TEMP; Start 11/09/18 at 07:00; Stop 11/10/18 at 06:59 Coded Allergies: No Known Allergy (Unverified , 11/04/18) Past Surgical History Past Surgical Hx: no surgical history Family History Significant Family History: no pertinent family hx Social History Lives alone has brother and sister in [facility] Alcohol Use: none Smoking Status: Current every day smoker Drug Use: heroin, other (benzo) Exam/Review of Systems Vital Signs Vitals Vital Signs Date Temp Pulse Resp B/P (MAP) Pulse Ox O2 O2 Flow FiO2 Time Delivery Rate 11/09/18 88 19 127/79 100 Room Air 06:53 (95) 11/09/18 98.0 05:10 Exam Exam ON ARMS SIGNS OF iv narcotic ABUSE Constitutional: alert, oriented Psych: no complaints Head: normocephalic Eyes: nl conjunctiva ENMT: nl external ears & nose Neck: supple Respiratory: clear to auscultation Cardiovascular: regular rate and rhythm Gastrointestinal: soft Genitourinary - Female: CVA tenderness; No nl adnexae, No nl external genitalia, No CMT, No uterus, No other Musculoskeletal: swelling Extremities: edema (3+ WITH RIGHT CALF WOUND) Skin: puncture, other (scars, pale) ANNA MAXWELL Nov 09, 2018 08:45
[2018-11-09 09:48] VITALS: BP 107/64; PULSE 62; RESP 18
[2018-11-09] MEDS: PANTOPRAZOLE (EC) 40 MG TAB PO SCH (10:03)
[2018-11-09] MEDS: ENOXAPARIN 40 MG/0.4 ML SYG SC SCH (10:04)
[2018-11-09 12:23] VITALS: Ht 172.7 cm; Wt 77.7 kg
[2018-11-09] MEDS: NICOTINE (21 MG/24 HR) PATCH TRANSDERM SCH (15:56)
--- NOTE | 2018-11-09 17:45 | RADRPT ---
Echocardiogram Report Patient Name: ARIANA GONZALEZPatient ID: [id number] : 1960 (58y 7m)Study Date: 11/09/2018 9:50:31 AM Gender: FAccession #: [id number] Tech: Wendi Capone [facility] Location: [id number] Ref.Physician: ANNA MAXWELL Height(Cm): BSA: Weight(Kg): Quality: AdequateOrder Physician: ANNA MAXWELL Account #: Procedures: Echocardiographic Report: Transthoracic echocardiogram with complete 2D, M-Mode, and doppler examination. Indications: Bilateral edema lower extr. Measurements: 2D/M Mode Doppler Measurement Value Normal Range Measurement Value Normal Range LVIDd 2D 4.5 [ 3.8 - 5.2 ] cm AV Peak Kulwinder 1.7 [ 100.0 - 170.0 ] cm/se c LVIDs 2D 3.0 [ 2.2 - 3.5 ] cm AV Peak PG 12.0 [ 2.0 - 9.0 ] mmHg LVPWd 2D 0.9 [ 0.6 - 0.9 ] cm LVOT Peak Kulwinder 1.0 [ 70.0 - 110.0 ] cm/sec IVSd 2D 0.8 [ 0.6 - 0.9 ] cm LVOT Peak PG 4.0 [ 2.0 - 6.0 ] mmHg AoR Diam 2D 2.9 [ 2.3 - 3.1 ] cm MV E Peak Kulwinder 0.9 [ 60.0 - 130.0 ] cm/sec EDV 2D 92.9 [ 46.0 - 106.0 ] ml MV A Peak Kulwinder 1.0 [ 100.0 - 120.0 ] cm/se c ESV 2D 35.9 [ 14.0 - 42.0 ] ml MV E/A 0.9 [ 0.8 - 1.5 ] ratio EF 2D 61.4 [ 54.0 - 74.0 ] percent MV PHT 45.0 [ 20.0 - 100.0 ] msec LA Dimen 2D 3.6 [ 2.7 - 3.8 ] cm MV Decel Time 153 [ 104 - 258 ] msec MV Decel [place] 6 Lat E` Kulwinder 0.1 [ 10.0 - 15.0 ] cm/sec Lateral E/E` 9.1 [ 1.0 - 2.0 ] ratio Med E` Kulwinder 0.1 cm/sec MV E/A 0.9 [ 0.8 - 1.5 ] ratio MVA PHT 4.9 [ 2.0 - 4.0 ] cm2 TR Peak Kulwinder 2.5 [ 100.0 - 280.0 ] cm/se c TR Peak PG 24.0 mmHg RVSP 3.0 [ 10.0 - 36.0 ] mmHg RA Pressure 24.0 mmHg Findings: Left Ventricle: Normal left ventricular systolic function. Normal left ventricular cavity size. Normal left ventricular wall thickness. Ejection fraction is visually estimated at 55-60 %. Tissue Doppler/Mitral Doppler indices are consistent with impaired relaxation (Stage I diastolic dysfunction). Right Ventricle: Normal right ventricular size. Normal right ventricular systolic function. Left Atrium: The left atrium is normal in size. Right Atrium: The right atrium is normal in size. Atrial Septum: Normal atrial septum. Ventricular septum: Normal/intact ventricular septum. Mitral Valve: Normal appearance of the mitral valve. Trace mitral regurgitation. Aortic Valve: Normal appearance of the aortic valve. No aortic regurgitation. Tricuspid Valve: Normal appearance of the tricuspid valve. The estimated Peak RVSP is 27 mmHg. There is trace to mild tricuspid regurgitation. Pericardium: Normal pericardium with no significant pericardial effusion. Aorta: Normal aortic root. IVC: Normal size and normal respiratory collapse consistent with normal right atrial pressure. Conclusions: Normal left ventricular systolic function. Normal left ventricular cavity size. Normal left ventricular wall thickness. Ejection fraction is visually estimated at 55-60 %. Tissue Doppler/Mitral Doppler indices are consistent with impaired relaxation (Stage I diastolic dysfunction). ). Normal right ventricular size. Normal right ventricular systolic function. Trace mitral regurgitation. No aortic regurgitation. The estimated Peak RVSP is 27 mmHg. There is trace to mild tricuspid regurgitation. Normal pericardium with no significant pericardial effusion. Electronically Signed By: Satish Jimenez 2018-11-09 17:44:49 PDT
[2018-11-09 20:27] VITALS: BP 108/63; PULSE 85; RESP 18
[2018-11-10 02:28] VITALS: BP 110/66; PULSE 75; RESP 20
[2018-11-10] MEDS: PANTOPRAZOLE (EC) 40 MG TAB PO SCH (05:58)
[2018-11-10 07:38] VITALS: BP 117/56; PULSE 89; RESP 15
[2018-11-10] MEDS: NICOTINE (21 MG/24 HR) PATCH TRANSDERM SCH (08:20)
[2018-11-10] MEDS: ENOXAPARIN 40 MG/0.4 ML SYG SC SCH (08:21)
--- NOTE | 2018-11-10 09:47 | CONS ---
DATE OF ADMISSION: 11/09/2018 DATE OF CONSULTATION: 11/10/2018 REASON FOR CONSULTATION: Right lower extremity cellulitis, infected ulceration. HISTORY OF PRESENT ILLNESS: This is a 58-year-old female with chronic ulceration who was recently ho spitalized and left against medical advice. The patient with persistent drainage has an abscess form ation. She has on 11/05/2018, wound cultures with polymicrobial growth including Staph aureus, E. co li and strep . PAST MEDICAL HISTORY: Lymphedema, narcotic dependency, smoking, history of lymphoma, chemotherapy, h ypochromic anemia, malnourishment, noncompliance. ALLERGIES: NONE. MEDICATIONS: 1. Nicotine patch daily. 2. Pantoprazole 40 mg p.o. daily. 3. Lovenox. PHYSICAL EXAMINATION: VITAL SIGNS: Temperature 98.4, pulse is 89, respiratory rate 15, blood pressure is 117/56, pulse ox 92 on room air, alert, oriented, pleasant mood. EXTREMITIES: Right lower extremity calf ulceration measuring 4 x 3 cm with heavy amount of purulent drainage, ulceration tunnels. The 6 o'clock position has pain with palpation. Also ulceration plant ar aspect of the right foot 1 x 1 cm, skin and subcutaneous atrophy to the heel. She has lymphedema of the foot and lower extremity, pedal pulses are palpable. LABORATORIES: WBC 5.5, hemoglobin 7.5, hematocrit 25.7, platelets 344. Blood cultures no growth. ASSESSMENT: 1. Right lower extremity abscess. 2. Right lower extremity cellulitis. 3. Lymphedema. 4. Right foot ulceration. 5. Narcotic dependence, history of daily heroin use. 6. Noncompliance. PLAN: The patient left AMA prior hospitalizations; high elopement risk. This is our plan; continue b.i.d. Dakin's irrigation and open packing. Given presence of abscess would benefit from incision an d drainage. This was discussed with patient and she is amenable. We will schedule a mutually agreea ble time. Awaiting culture results. Dictated By: TINO LEON/ALBINA Conf#: [id number] DID#: [id number] CC: BRUCE LYLES MD;*EndCC*
[2018-11-10] MEDS: MUPIROCIN 2% 22 GM OINT TOP SCH ×2 (10:28→21:05)
[2018-11-10] MEDS ORDERED: VANCOMYCIN IV PER PHARMACY XX SCH (11:00)
[2018-11-10] MEDS ORDERED: CEFEPIME 1GM/50 ML (PMX) 50 ML IVPB SCH (11:00)
--- NOTE | 2018-11-10 11:04 | PN ---
Date/Time of Note Date/Time of Note DATE: 11/10/18 TIME: 11:00 Assessment/Plan VTE Prophylaxis Risk score (from Nsg)>0 risk: 2 SCD applied (from Ns): No SCD contraindicated: bilateral LE trauma Pharmacological prophylaxis: LMWH Lines/Catheters IV Catheter Type (from Nrs): Peripheral IV Assessment/Plan Hospital Course 1. Bilateral cellulitis with wounds/Elephantiasis. MRI LE showed: Very extensive bilateral subcutaneous soft tissue swelling and skin thickening throughout both calves, query cellulitis. Large skin ulceration at the lateral aspect of the right mid calf. On the right within the anterolateral subcutaneous soft tissues of the mid calf there is suspicion for phlegmon/abscess measuring 5.3 x 4.4 x 1.7 cm. A smaller similar region is seen anteriorly on the left measuring approximately 2.9 x 1.8 cm. If clinically warranted contrast-enhanced MRI or CT may provide additional detail. Abnormal medullary bone marrow signal within the proximal tibial metaphysis on the right and the proximal/distal tibial metaphysis on the left, more in keeping with bone infarcts rather than osteomyelitis. No definite evidence of acute osteomyelitis at this time. 2. Active narcotic dependency with iv heroine injections and oral benzodiazepines use 3. Current smoking 4. History of lymphoma and chemotherapy 5. Normocytic hypochromic anemia 6. Malnourishment 7. Hypothyroidism, uncontrolled 8. Non compliance with regime, high elopement risk 9. Anxiety, depression. Assessment/Plan -DVT prophylaxis Lovenox -iron panel tomorrow -Start on Wellbutrin -start ferrlicit -GI prophylaxis Protonix -Pain control -MedSurg -increase thyroid supplement, pt is unaware of dose, per previous record it is 200 mcg. -BNP tomorrow -c/w Wound care -Nicotine patch -IV anti-biotic therapy start Cefepime and Vanco -ID consult Dr. Mckeon, aware -Podiatry consult with Dr. Payne -Wound swab culture pend., Blood culture pending. -Recent ultrasound of lower extremity shows no sonographic evidence of the deep vein thrombosis Result Diagram: 11/10/18 0545 11/10/18 0545 Results 24hrs Laboratory Tests Test 11/09/18 11:41 11/10/18 05:45 Lactic Acid Level 1.6 White Blood Count 5.3 Red Blood Count 2.91 L Hemoglobin 7.5 L Hematocrit 25.7 L Mean Corpuscular Volume 88.3 Mean Corpuscular Hemoglobin 25.8 L Mean Corpuscular Hemoglobin Concent 29.2 L Red Cell Distribution Width 18.6 H Platelet Count 344 Mean Platelet Volume 9.2 Immature Granulocytes % 0.200 Neutrophils % 51.0 Lymphocytes % 38.5 Monocytes % 7.6 Eosinophils % 2.3 Basophils % 0.4 Nucleated Red Blood Cells % 0.0 Immature Granulocytes # 0.010 Neutrophils # 2.7 Lymphocytes # 2.0 Monocytes # 0.4 Eosinophils # 0.1 Basophils # 0.0 Nucleated Red Blood Cells # 0.0 Sodium Level 142 Potassium Level 3.6 Chloride Level 109 Carbon Dioxide Level 27 Anion Gap 6 Blood Urea Nitrogen 11 Creatinine 0.62 Est Glomerular Filtrat Rate mL/min > 60 Glucose Level 94 Calcium Level 8.0 L B-Type Natriuretic Peptide 209 H Thyroid Stimulating Hormone (TSH) 16.400 H Hepatitis B Surface Antigen NEGATIVE Hepatitis B Core Total Antibody NEGATIVE Hepatitis C Antibody REACTIVE H HIV (1&2) Antibody NEGATIVE Subjective 24 Hr Interval Summary Musculoskeletal: bone/joint pain, restricted range of motion, swelling Psychological: depression Exam/Review of Systems Exam Vitals Vital Signs Date Temp Pulse Resp B/P (MAP) Pulse Ox O2 O2 Flow FiO2 Time Delivery Rate 11/10/18 98.4 89 15 117/56 92 Room Air 07:38 (76) Intake and Output 11/09/18 11/09/18 11/10/18 1515:00 23:00 07:00 IntakeIntake Total 300 ml 200 ml BalanceBalance 300 ml 200 ml Constitutional: alert, oriented Psych: depression Neck: supple Respiratory: clear to auscultation Gastrointestinal: soft Musculoskeletal: muscle weakness, swelling (bilateral legs) Extremities: edema Additional Comments crying Results Results 24hrs Laboratory Tests Test 11/09/18 11:41 11/10/18 05:45 Lactic Acid Level 1.6 White Blood Count 5.3 Red Blood Count 2.91 L Hemoglobin 7.5 L Hematocrit 25.7 L Mean Corpuscular Volume 88.3 Mean Corpuscular Hemoglobin 25.8 L Mean Corpuscular Hemoglobin Concent 29.2 L Red Cell Distribution Width 18.6 H Platelet Count 344 Mean Platelet Volume 9.2 Immature Granulocytes % 0.200 Neutrophils % 51.0 Lymphocytes % 38.5 Monocytes % 7.6 Eosinophils % 2.3 Basophils % 0.4 Nucleated Red Blood Cells % 0.0 Immature Granulocytes # 0.010 Neutrophils # 2.7 Lymphocytes # 2.0 Monocytes # 0.4 Eosinophils # 0.1 Basophils # 0.0 Nucleated Red Blood Cells # 0.0 Sodium Level 142 Potassium Level 3.6 Chloride Level 109 Carbon Dioxide Level 27 Anion Gap 6 Blood Urea Nitrogen 11 Creatinine 0.62 Est Glomerular Filtrat Rate mL/min > 60 Glucose Level 94 Calcium Level 8.0 L B-Type Natriuretic Peptide 209 H Thyroid Stimulating Hormone (TSH) 16.400 H Hepatitis B Surface Antigen NEGATIVE Hepatitis B Core Total Antibody NEGATIVE Hepatitis C Antibody REACTIVE H HIV (1&2) Antibody NEGATIVE Medications Medication Current Medications Pantoprazole (Protonix Tab) 40 mg DAILY@0600 PO Last administered on 11/10/18at 05:58; Admin Dose 40 MG; Start 11/09/18 at 09:00 Enoxaparin Sodium (Lovenox) 40 mg DAILY SC Last administered on 11/10/18 08:21 ; Admin Dose 40 MG; Start 11/09/18 at 09:00 Nicotine (Nicoderm 21 Mg/ 24hr) 1 patch DAILY TRANSDERM Last administered on 11/10/18at 08:20; Admin Dose 1 PATCH; Start 11/09/18 at 15:00 Mupirocin (Bactroban) 1 applic BID TOP Last administered on 11/10/18at 10:28; Admin Dose 1 APPLIC; Start 11/10/18 at 10:00 Sodium Hypochlorite (Dakins Diluted (1/40)) 1 applic BID TP ; Start 11/10/18 at 11:20 ANNA MAXWELL Nov 10, 2018 11:04
[2018-11-10] MEDS ORDERED: SENNA TAB PO PRN (11:30)
[2018-11-10] MEDS: LORAZEPAM 0.5 MG TAB PO SCH ×2 (11:45→21:04)
[2018-11-10] MEDS: DAKINS 0.0125%(1/40) 473 ML SOLUTION TP SCH ×2 (11:46→21:06)
[2018-11-10] MEDS ORDERED: SOD FERRIC GLUC COMPLX 125 MG in SOD CHLORIDE 0.9% 100 ML IVPB SCH (13:00)
[2018-11-10] MEDS ORDERED: VANCOMYCIN 1 GM 250 ML IVPB SCH (13:00)
--- NOTE | 2018-11-10 13:07 | CONS ---
Assessment/Plan Assessment/Plan Hospital Course (Demo Recall) Patient is awake looks comfortable denies pain no fevers overnight. No nausea vomiting diarrhea. WBC 5.3, no shift no bands BUN 11 creatinine 0.62 Microbiology right foot wound culture growing staph aureus and gram-negative rods blood cultures remain negative, wound cultures on previous admission on November 05 grew E. coli, oxacillin sensitive staph aureus strep pyogenous Corynebacterium species posterior multocida Antimicrobials: Patient is on IV Vanco and cefepime Physical examination well-developed middle-aged white woman who is alert in no distress head atraumatic normocephalic neck is supple chest rise symmetrical breath sounds clear heart S1-S2 abdomen soft bowel sounds present extremities with bilateral lower extremities edema right foot dressing intact Assessment: 1. Bilateral lower extremities chronic ulceration with cellulitis, cultures growing multiple bacteria 2. Medical noncompliance 3. Hypothyroidism 4. History of non-Hodgkin's lymphoma 5. History of heroin abuse Plan: Patient is stable, change abx to Clindamycin, Doxycycline and Cipro, follow podiatry recommendations Consultation Date/Type/Reason Admit Date/Time Nov 09, 2018 at 06:34 Initial Consult Date Type of Consult id Date/Time of Note DATE: 11/10/18 TIME: 13:07 Exam/Review of Systems Exam Vitals Vital Signs Date Temp Pulse Resp B/P (MAP) Pulse Ox O2 O2 Flow FiO2 Time Delivery Rate 11/10/18 98.4 89 15 117/56 92 Room Air 07:38 (76) Intake and Output 11/09/18 11/09/18 11/10/18 1414:59 22:59 06:59 IntakeIntake Total 300 ml 200 ml BalanceBalance 300 ml 200 ml Results Result Diagram: 11/10/18 0545 11/10/18 0545 Results 24hrs Laboratory Tests Test 11/10/18 05:45 White Blood Count 5.3 Red Blood Count 2.91 L Hemoglobin 7.5 L Hematocrit 25.7 L Mean Corpuscular Volume 88.3 Mean Corpuscular Hemoglobin 25.8 L Mean Corpuscular Hemoglobin Concent 29.2 L Red Cell Distribution Width 18.6 H Platelet Count 344 Mean Platelet Volume 9.2 Immature Granulocytes % 0.200 Neutrophils % 51.0 Lymphocytes % 38.5 Monocytes % 7.6 Eosinophils % 2.3 Basophils % 0.4 Nucleated Red Blood Cells % 0.0 Immature Granulocytes # 0.010 Neutrophils # 2.7 Lymphocytes # 2.0 Monocytes # 0.4 Eosinophils # 0.1 Basophils # 0.0 Nucleated Red Blood Cells # 0.0 Sodium Level 142 Potassium Level 3.6 Chloride Level 109 Carbon Dioxide Level 27 Anion Gap 6 Blood Urea Nitrogen 11 Creatinine 0.62 Est Glomerular Filtrat Rate mL/min > 60 Glucose Level 94 Calcium Level 8.0 L B-Type Natriuretic Peptide 209 H Thyroid Stimulating Hormone (TSH) 16.400 H Hepatitis B Surface Antigen NEGATIVE Hepatitis B Core Total Antibody NEGATIVE Hepatitis C Antibody REACTIVE H HIV (1&2) Antibody NEGATIVE Medications Medication Current Medications Pantoprazole (Protonix Tab) 40 mg DAILY@0600 PO Last administered on 11/10/18at 05:58; Admin Dose 40 MG; Start 11/09/18 at 09:00 Enoxaparin Sodium (Lovenox) 40 mg DAILY SC Last administered on 11/10/18at 08:21; Admin Dose 40 MG; Start 11/09/18 at 09:00 Nicotine (Nicoderm 21 Mg/ 24hr) 1 patch DAILY TRANSDERM Last administered on 11/10/18at 08:20; Admin Dose 1 PATCH; Start 11/09/18 at 15:00 Mupirocin (Bactroban) 1 applic BID TOP Last administered on 11/10/18at 10:28; Admin Dose 1 APPLIC; Start 11/10/18 at 10:00 Sodium Hypochlorite (Dakins Diluted (1/40)) 1 applic BID TP Last administered on 11/10/18at 11:46; Admin Dose 1 APPLIC; Start 11/10/18 at 11:20 Cefepime HCl 50 ml @ 100 mls/hr Q12 IVPB ; Start 11/10/18 at 11:00 Vancomycin HCl (Vanco Iv Per Pharmacy) VANCOMYCIN PER PHARMACY PER PROTOCOL XX ; Start 11/10/18 at 11:00 Bupropion HCl (Wellbutrin Xl) 150 mg DAILY PO ; Start 11/10/18 at 11:00 Lorazepam (Ativan) 0.5 mg BID PO Last administered on 11/10/18at 11:45; Admin Dose 0.5 MG; Start 11/10/18 at 11:00 Ferric Sodium Gluconate Complex 125 mg/Sodium Chloride 110 ml @ 110 mls/hr DAILY@1300 IVPB ; Start 11/10/18 at 13:00; Stop 11/14/18 at 13:59 Levothyroxine Sodium (Synthroid) 200 mcg DAILY@06 PO ; Start 11/11/18 at 06:00 Senna (Senokot) 1 tab BID PRN PO constipation Last administered on 11/10/18at 11:45; Admin Dose 1 TAB; Start 11/10/18 at 11:30 Vancomycin HCl 250 ml @ 125 mls/hr Q12H IVPB ; Start 11/10/18 at 13:00 ANGELITO BECK NP Nov 10, 2018 13:07
[2018-11-10] MEDS: BUPROPION (XL) 150 MG TAB PO SCH (13:40)
[2018-11-10 14:25] VITALS: BP 131/69; PULSE 85; RESP 16
[2018-11-10] MEDS: CLINDAMYCIN 900 MG/D5W (PMX) 50 ML IVPB SCH ×2 (14:56→21:04)
[2018-11-10] MEDS: CIPROFLOXACIN 500 MG TAB PO SCH (17:33)
[2018-11-10] MEDS ORDERED: DOXYCYCLINE 100 MG TAB PO SCH (21:00)
[2018-11-10 21:18] VITALS: BP 140/88; PULSE 91; RESP 16
[2018-11-10] MEDS: DOXYCYCLINE 100 MG TAB PO SCH (22:05)
[2018-11-11 02:54] VITALS: BP 124/86; PULSE 100; RESP 16
[2018-11-11] MEDS: CLINDAMYCIN 900 MG/D5W (PMX) 50 ML IVPB SCH (05:19)
[2018-11-11] MEDS: PANTOPRAZOLE (EC) 40 MG TAB PO SCH (05:20)
[2018-11-11] MEDS: CIPROFLOXACIN 500 MG TAB PO SCH (05:20)
[2018-11-11] MEDS ORDERED: LEVOTHYROXINE 100 MCG TAB PO SCH (06:00)
[2018-11-11] MEDS ORDERED: LEVOTHYROXINE 75 MCG TAB PO SCH (06:00)
[2018-11-11 07:51] VITALS: BP 106/66; PULSE 82; RESP 18
[2018-11-11] MEDS: LORAZEPAM 0.5 MG TAB PO SCH (08:56)
[2018-11-11] MEDS: NICOTINE (21 MG/24 HR) PATCH TRANSDERM SCH (08:56)
[2018-11-11] MEDS: BUPROPION (XL) 150 MG TAB PO SCH (08:56)
[2018-11-11] MEDS: ENOXAPARIN 40 MG/0.4 ML SYG SC SCH (08:59)
[2018-11-11] MEDS: DOXYCYCLINE 100 MG TAB PO SCH (09:00)
[2018-11-11] MEDS: MUPIROCIN 2% 22 GM OINT TOP SCH (09:00)
[2018-11-11] MEDS: DAKINS 0.0125%(1/40) 473 ML SOLUTION TP SCH (09:00)
--- NOTE | 2018-11-12 09:02 | DS ---
DATE OF ADMISSION: 11/09/2018 DATE OF DISCHARGE: 11/11/2018 Please see the history and physical and consultation. HOSPITAL COURSE: This is a 58-year-old female with a past medical history of non-Hodgkin, lymphoma, chemotherapy, hypothyroidism, current IV use, recently had been admitted to [facility] on and treated with antibiotics. She left against medical advice at that time and blood cultur es and a Gram stain that was positive for gram-negative rods. She returned to the ER on stating she has very foul smelling purulent discharge of the right lower extremity. The patient also had an ultrasound that showed no evidence of any deep vein thrombosis. The patient was seen by ID glenna tisary and was started on antibiotics to clindamycin, doxycycline and Cipro. The patient was seen by Dr. John rocha and the patient was scheduled for I and D; however, again, the patient left AMA. As the patient was given the options to have the ____ checked on, but patient apparently refused an d insisted on checking her ____ herself and signed AMA paper. Dictated By: STAR LEON/ALBINA Conf#: [id number] DID#: [id number]
== END 2018-11-11 11:50 | disposition left against medical advice (07) | DRG 603 ==
LOC: E/R 03:43 → 5EC 06:34
PROVIDERS: ADMIT Internal Medicine Nephrology; ATTEND Internal Medicine Nephrology
DX: L03.115 Cellulitis of right lower limb (principal); L97.219 Non-pressure chronic ulcer of right calf with unspecified severity; F11.20 Opioid dependence, uncomplicated; E46 Unspecified protein-calorie malnutrition; L02.415 Cutaneous abscess of right lower limb; Z85.72 Personal history of non-Hodgkin lymphomas; Z72.0 Tobacco use; L97.519 Non-pressure chronic ulcer of other part of right foot with unspecified severity; Z91.19 Patient's noncompliance with other medical treatment and regimen; B96.20 Unspecified Escherichia coli [E. coli] as the cause of diseases classified elsewhere; B95.61 Methicillin susceptible Staphylococcus aureus infection as the cause of diseases classified elsewhere; Z68.26 Body mass index [BMI] 26.0-26.9, adult; E03.9 Hypothyroidism, unspecified; F41.8 Other specified anxiety disorders
CPT/HCPCS: 36415; 80048; 80053; 82150; 83540; 83605; 83690; 83880; 84443; 84484; 85025; 85610; 85730; 86703; 86704; 86709; 86803; 87070; 87081; 87340; 93005; 93306; 93970; J0692; J1650; J2543; J2916; J3370; J7030